=== PATIENT | female | born 1940 | race Caucasian/White ===

== ENCOUNTER 2018-09-08 12:57 | Inpatient (IN) | payer MEDICARE, OTHER ==
[~2018-09-08] VITALS: Ht 157.5 cm; Wt 74.1 kg
[2018-09-08 17:24] VITALS: BP 150/70
[2018-09-08 18:07] VITALS: BP 118/70
--- NOTE | 2018-09-08 19:04 | NUR ---
SENIOR LIVING ADMIT NOTE: Patient arrived to room 133 via wheelchair and accompanied by MICHAELLE Vitale. Patient admitted for PT/OT for generalized strengthening in preparation to going home following surgery for a right hip fracture. Patient oriented to room, bedside commode, call light, unit policies, and TV remote.
--- NOTE | 2018-09-08 19:12 | NUR ---
Swing Bed Nursing Note Patient Handbook for [facility] given to patient. Nursing Problem: PT/OT s/p Rt hip fx with IM Nailing on 09/05 Cognitive/Behavioral: Pt A/O x4, cooperative and pleasant with cares. Pain: Pt has 2 PRN pain medications Q6hr, PT rates pain 8-10/10 with some relief from medications. Pt applies ice when resting. Respiratory Status: CTA on RA. Skin: Incision to the right lateral hip. Dressing to be changed on 09/13. Bowel/Bladder Continence: Continent of bladder, has not had a bowel movement since surgery on 09/05. ADL Functional Status: Pt needs set up help only with dressing and meals, requires one person assist with transfers. Pt propelled self in wheelchair to meals, PT up with walker to bathroom.
[2018-09-08] MEDS ORDERED: OXYC-323 PO (21:37)
[2018-09-08] MEDS ORDERED: HYDR-2815 PO (22:05)
[2018-09-08] MEDS ORDERED: ASPI81TA50 PO (22:06)
[2018-09-08] MEDS: oxyCODONE/APAP 5/325 1 TAB TABLET PO PRN (23:13)
[2018-09-09] MEDS: HYDROcodone/APAP 5/325MG 1 TAB TABLET PO PRN ×3 (03:33→22:37)
[2018-09-09 06:36] VITALS: BP 153/74
[2018-09-09] MEDS: ASPIRIN ENTERIC COATED 81 MG TABLET.DR. PO SCH (07:55)
[2018-09-09] MEDS: oxyCODONE/APAP 5/325 1 TAB TABLET PO PRN ×2 (07:55→13:29)
--- NOTE | 2018-09-09 12:46 | NUR ---
Swing Bed Nursing Note Patient Handbook for [facility] given to patient. Nursing Problem: PT/OT s/p R hip fx with IM Nailing on 09/05 Cognitive/Behavioral: Pt A/Ox4, cooperative and pleasant with cares Pain: Pt has 2 PRN pain medications Q6hr, pt rates pain 8-10 with some relief from medications. Pt applies ice when resting, as well. Respiratory Status: CTA, 98% on room air Skin: Incision to the Right lateral hip, pictures taken and put in chart. To be changed on 09/13 Bowel/Bladder Continence: Continent of bladder, has not had a bowel movement since surgery on 09/05, stool softeners administered. ADL Functional Status: Pt needs set up help only with dressing and meals, requires one person assist with transfers. Pt propelled self in wheelchair to meals, pt up to walk in the walker to bathroom.
[2018-09-09] MEDS ORDERED: ATOR20TA PO (13:16)
[2018-09-09] MEDS ORDERED: FLUO10CA13 PO (13:16)
[2018-09-09] MEDS ORDERED: BISACODYL 10 MG SUPP.RECT PR PRN (14:45)
[2018-09-09] MEDS ORDERED: GLYCERIN ADULT 1 SUPP.RECT. PR PRN ×2 (14:45)
--- NOTE | 2018-09-09 14:55 | PDOC1 ---
History and Physical Date of Admission: Date of Admission: 09/08/2018 Chief Complaint: Chief Complain: PT/OT status post ORIF right hip HPI: HPI: Patient is a 78-year-old female transferred to swing bed status for PT and OT after ORIF right hip. Records indicate that the patient became dizzy while ambulating and fell fracturing her right hip. She underwent surgical repair on 09/05 Dr [facility] orth[facility]ics. Her condition has stabilized such that she is stable for discharge to continue rehabilitation. She is brought to our facility swing bed status. I find the patient lying in bed in no apparent distress. Her biggest complaint is constipation with no bowel movement 4 days. She has some generalized abdominal discomfort no belching nausea or vomiting. She is also having some postoperative pain denies any chest pain or trouble breathing. Medical history significant only for breast cancer which was apparently cured with mastectomy in 2001. Her vital signs have been stable since admission there are no labs available for review. Past Medical History: Heme/Onc: Cancer (breast cancer with mastectomy 2001) Past Surgical History: PSH: Mastectomy, ORIF right hip Family History: Family History: Hypertension Social History: Smoke: No Alcohol: none Drugs: None Allergies: Allergies: Coded Allergies: No Known Drug Allergies (Unverified , 09/08/18) Current Medications: Current Medications: Current Medications Medications (Trade) Dose Ordered Sig/Ele Start Time Stop Time Status Last Admin Dose Admin Acetaminophen/ Hydrocodone Bitart (Lortab 5/325) 1 tab PRN Q4HRS PRN 09/08/18 22:30 09/09/18 10:45 1 TAB Aspirin (Aspirin Enteric Coated) 81 mg DAILYWBKFT 09/09/18 08:00 09/09/18 07:55 81 MG Atorvastatin Calcium (Lipitor) 20 mg QHS 09/09/18 21:00 Non-Formulary Medication (Fluoxetine Hcl (Prozac)) 1 cap DAILYWBKFT 09/10/18 08:00 UNV Oxycodone/ Acetaminophen (Percocet 5/325) 1 tab PRN Q4HRS PRN 09/09/18 00:00 09/09/18 13:29 1 TAB ROS: ROS: Constitutional: No fever or chills Eyes: No eye pain or blurred vision Skin: No rash or itching Cardiovascular: No chest pain, syncope, palpitations, dyspnea on exertion, or edema Respiratory: No cough or difficulty breathing Gastrointestinal: No nausea, vomiting see history of present illness Neurologic: No headaches or focal neurologic deficits Endocrine: No heat or cold intolerance Genitourinary: No incontinence or hematuria Musculoskeletal: See history of present illness Lymphatics: No enlarged lymph nodes Psychiatric: No anxiety or depression PE: PE: Gen.: Alert, pleasant, no apparent distress HEENT: Normocephalic atraumatic, PERRLA EOMI, no scleral icterus, oral mucosa pink and moist Neck: Supple, no lymphadenopathy, nontender Cardiovascular: Normal S1 and S2 no murmurs Pulmonary: Lungs are clear bilaterally with good air movement no respiratory distress Abdomen: Soft nontender non-distended, bowel sounds present no masses Extremities: Sterile dressing covering operative site was some mild tenderness Neuro: Alert and oriented 3, cranial nerves II through XII grossly intact, no lateralizing neuro deficits Skin: Warm, dry Vitals: Vitals: Vital Signs Date Time Temp Pulse Resp B/P (MAP) Pulse Ox O2 Delivery O2 Flow Rate FiO2 09/09/18 14:34 95 Room Air 09/09/18 06:36 97.7 78 18 153/74 (100) VTE Prophylaxis: VTE Prophylaxis Devices: No VTE Pharmacological Prophylaxi: Yes Assessment/Plan: A/P: Closed right intertrochanteric hip fracture Pain control Constipation History of breast cancer Lovenox anticoagulation with decreased mobility and cancer history. Titrate oxycodone to analgesic effect, stool softeners and suppositories to stimulate bowels. Obtain basic labs for baseline, continue PT/OT. CHRISTO AGUILAR DO Sep 09, 2018 14:55
[2018-09-09] MEDS: ENOXAPARIN 40 MG/0.4 ML SYRINGE. SQ SCH (15:46)
[2018-09-09] MEDS: oxyCODONE IR 5 MG TABLET PO PRN ×2 (16:04→18:29)
[2018-09-09 18:18] VITALS: BP 131/57
--- NOTE | 2018-09-09 19:43 | NUR ---
Swing Bed Nursing Note Patient Handbook for [facility] given to patient. Nursing Problem: PT/OT s/p Rt hip fx with IM Nailing on 09/05 Cognitive/Behavioral: Pt A/O x4, cooperative and pleasant with cares Pain: Pt 3 PRN pain medications, pt rates pain 8-10/10 with some relief from medications. Pt applies ice when resting. Respiratory Status: CTA on room air Skin: Incision to the Right lateral hip, pictures in chart; dressing to be changed again on 09/13 Bowel/Bladder Continence: Continent of bladder, has not had a bowel movement since surgery on 09/05, stool softeners administered 09/09 day shift. ADL Functional Status: Pt needs set up help only with dressing and meals, requires one person assist with transfers. Pt propelled self in wheelchair to meals, pt up with walker to bathroom.
[2018-09-09] MEDS: FAMOTIDINE 20 MG TABLET PO SCH (21:38)
[2018-09-09] MEDS: ATORVASTATIN CALCIUM 20 MG TABLET PO SCH (21:39)
[2018-09-10] MEDS: oxyCODONE IR 5 MG TABLET PO PRN (05:09)
[2018-09-10 05:14] VITALS: BP 150/67
[2018-09-10 07:05] LABS: BASO # 0.1 x10^3/uL (0.0-0.2); BASO % 1 % (0-3); EOS # 0.2 x10^3/uL (0.0-0.7); EOS % 3 % (0-3); HEMATOCRIT 26.7 % (36.0-47.0); LYMPH # 1.5 x10^3/uL (1.0-4.8); LYMPH % 19 % (24-48); MEAN CORPUSCULAR HEMOGLOBIN 31 pg (25-35); MEAN CORPUSCULAR HGB CONC 34 g/dL (31-37); MEAN CORPUSCULAR VOLUME 93 fL (79-100); MONO # 0.9 x10^3/uL (0.0-1.1); MONO % 12 % (0-9); NEUT # 5.1 x10^3uL (1.8-7.7); NEUT % 65 % (31-73); PLATELET COUNT 232 x10^3/uL (140-400); RED BLOOD COUNT 2.86 x10^6/uL (3.50-5.40); WHITE BLOOD COUNT 7.8 x10^3/uL (4.0-11.0)
[2018-09-10 07:19] LABS: ALBUMIN 2.5 g/dL (3.4-5.0); ALBUMIN/GLOBULIN RATIO 0.6 (1.0-1.7); CALCIUM 8.7 mg/dL (8.5-10.1); CREATININE 0.8 mg/dL (0.6-1.0); GFR 69.7; TOTAL BILIRUBIN 0.4 mg/dL (0.2-1.0); TOTAL PROTEIN 6.4 g/dL (6.4-8.2)
[2018-09-10] MEDS: FAMOTIDINE 20 MG TABLET PO SCH ×2 (08:29→21:34)
[2018-09-10] MEDS: oxyCODONE/APAP 5/325 1 TAB TABLET PO PRN ×4 (08:29→21:36)
[2018-09-10] MEDS: FLUoxetine HCL 10 MG CAPSULE PO SCH (08:29)
[2018-09-10] MEDS: ASPIRIN ENTERIC COATED 81 MG TABLET.DR. PO SCH (08:29)
[2018-09-10] MEDS: POLYETHYLENE GLYCOL 3350 17 GM PACKET. PO SCH (08:30)
--- NOTE | 2018-09-10 10:01 | NUR ---
Pt sat up to chair for breakfast time, refused tray but is eating a banana and drinking. Pt walked 40 feet using walker and gait belt with 1 assist. Pt tolerated well. Pt back in chair, feels that percocet has helped her pain the most. Pt states she will go to dining room for lunch. Pt cleaned up at bedside, assistance with set up and with back and legs. Will continue to monitor. Addendum: 09/10/18 at 1436 by SHERRY BERNSTEIN RN Correction: Distance was 80 feet.
--- NOTE | 2018-09-10 14:56 | NUR ---
Swing Bed Nursing Note Patient Handbook for [facility] given to patient. Nursing Problem: PT/OT s/p Rt hip fx with IM Nailing on 09/05 Cognitive/Behavioral: Pt A/O x4, cooperative and pleasant with cares Pain: Pt complains of pain, relieved with percocet. Respiratory Status: CTA on room air Skin: Incision to the Right lateral hip, pictures in chart; dressing to be changed again on 09/13. Dressing CDI. Bowel/Bladder Continence: Continent of bowel and bladder, small bowel movement 09/09. Stool softeners and laxatives given. Positive bowel sounds. ADL Functional Status: Pt needs set up help only with dressing and meals, supervision with transfers and mobility. Pt up with walker to bathroom and dining room.
--- NOTE | 2018-09-10 16:03 | NUR ---
Pt walked 90 feet with walker, supervision only.
[2018-09-10] MEDS: ENOXAPARIN 40 MG/0.4 ML SYRINGE. SQ SCH (17:03)
[2018-09-10 18:12] VITALS: BP 149/72
[2018-09-10] MEDS: ATORVASTATIN CALCIUM 20 MG TABLET PO SCH (21:34)
[2018-09-11] MEDS: oxyCODONE/APAP 5/325 1 TAB TABLET PO PRN ×4 (04:13→21:19)
--- NOTE | 2018-09-11 05:13 | NUR ---
Swing Bed Nursing Note Patient Handbook for [facility] given to patient. Nursing Problem: PT/OT s/p Rt hip fx with IM Nailing on 09/05 Cognitive/Behavioral: Pt A/O x4, cooperative and pleasant with cares Pain: Pt complains of pain, relieved with percocet. Respiratory Status: CTA on room air Skin: Incision to the Right lateral hip, pictures in chart; dressing to be changed again on 09/13. Dressing CDI. Bowel/Bladder Continence: Continent of bowel and bladder, small bowel movement 09/09. Stool softeners and laxatives given. Positive bowel sounds. ADL Functional Status: Pt needs set up help only with dressing and meals, supervision with transfers and mobility. Pt up with walker to bathroom and dining room. Circulation: GISELA arias for VTE.
[2018-09-11 06:24] VITALS: BP 112/66
[2018-09-11] MEDS: ASPIRIN ENTERIC COATED 81 MG TABLET.DR. PO SCH (08:09)
[2018-09-11] MEDS: FLUoxetine HCL 10 MG CAPSULE PO SCH (08:09)
[2018-09-11] MEDS: FAMOTIDINE 20 MG TABLET PO SCH ×2 (09:21→21:14)
[2018-09-11] MEDS: POLYETHYLENE GLYCOL 3350 17 GM PACKET. PO SCH (09:22)
[2018-09-11] MEDS: DOCUSATE SODIUM 100 MG CAPSULE PO SCH (10:59)
[2018-09-11] MEDS: ENOXAPARIN 40 MG/0.4 ML SYRINGE. SQ SCH (18:12)
[2018-09-11 18:33] VITALS: BP 113/56
[2018-09-11] MEDS: ATORVASTATIN CALCIUM 20 MG TABLET PO SCH (21:15)
[2018-09-12] MEDS: oxyCODONE/APAP 5/325 1 TAB TABLET PO PRN ×5 (01:30→21:05)
--- NOTE | 2018-09-12 03:53 | NUR ---
Swing Bed Nursing Note Patient Handbook for [facility] given to patient. Nursing Problem: PT/OT s/p Rt hip fx with IM Nailing on 09/05 Cognitive/Behavioral: Pt A/O x4, cooperative and pleasant with cares Pain: Pt complains of pain, relieved with percocet and given every 4 hours. Respiratory Status: CTA on room air Skin: Incision to the Right lateral hip, pictures in chart; dressing to be changed again on 09/13. Dressing CDI. Bowel/Bladder Continence: Continent of bowel and bladder, small bowel movement 09/11. ADL Functional Status: Pt needs set up help only with dressing and meals, supervision with transfers and mobility. Pt up with walker to bathroom and dining room. Circulation: GISELA arias for VTE.
[2018-09-12 06:45] VITALS: BP 139/72
--- NOTE | 2018-09-12 07:51 | NUR ---
Swing Bed Nursing Note Patient Handbook for [facility] given to patient. Nursing Problem: PT/OT s/p Rt hip fx with IM Nailing on 09/05 Cognitive/Behavioral: Pt A/O x4, cooperative and pleasant with care Pain: Pt complains of pain, relieved with percocet and given every 4 hours. Pt educated on opioid induced constipation Respiratory Status: CTA on room air Skin: Incision to the Right lateral hip, pictures in chart; dressing to be changed again on 09/13. Dressing CDI. Bowel/Bladder Continence: Continent of bowel and bladder, small bowel movement 09/11. ADL Functional Status: Pt needs set up help only with dressing and meals, supervision with transfers and mobility. Pt up with walker to bathroom and dining room. Circulation: GISELA arias for VTE. Bibi Alfonso [employer] HEATER HELPER CMSRN OK-
[2018-09-12] MEDS: HYDROcodone/APAP 5/325MG 1 TAB TABLET PO PRN (09:14)
[2018-09-12] MEDS: FAMOTIDINE 20 MG TABLET PO SCH ×2 (09:14→21:05)
[2018-09-12] MEDS: FLUoxetine HCL 10 MG CAPSULE PO SCH (09:15)
[2018-09-12] MEDS: ASPIRIN ENTERIC COATED 81 MG TABLET.DR. PO SCH (09:15)
[2018-09-12] MEDS: DOCUSATE SODIUM 100 MG CAPSULE PO SCH (09:15)
[2018-09-12] MEDS: POLYETHYLENE GLYCOL 3350 17 GM PACKET. PO SCH (09:15)
--- NOTE | 2018-09-12 13:40 | NUR ---
Called [facility] for clarity on when the patient can shower post op. Received instructions from nurse that patient can shower with waterproof covering over the dressing. Patient in her room resting in stable condition. Denies complaints at this time. Will continue to monitor.
[2018-09-12] MEDS: ENOXAPARIN 40 MG/0.4 ML SYRINGE. SQ SCH (17:20)
[2018-09-12 18:32] VITALS: BP_SYST 122; BP_SYST 123; BP_DIAS 59; BP_DIAS 77
[2018-09-12] MEDS: ATORVASTATIN CALCIUM 20 MG TABLET PO SCH (21:05)
[2018-09-13] MEDS: oxyCODONE/APAP 5/325 1 TAB TABLET PO PRN ×5 (03:19→21:41)
[2018-09-13 06:20] VITALS: BP 135/72
[2018-09-13] MEDS: FLUoxetine HCL 10 MG CAPSULE PO SCH (08:42)
[2018-09-13] MEDS: ASPIRIN ENTERIC COATED 81 MG TABLET.DR. PO SCH (08:42)
[2018-09-13] MEDS: FAMOTIDINE 20 MG TABLET PO SCH ×2 (08:42→21:40)
[2018-09-13] MEDS: DOCUSATE SODIUM 100 MG CAPSULE PO SCH (08:42)
[2018-09-13] MEDS: POLYETHYLENE GLYCOL 3350 17 GM PACKET. PO SCH (08:43)
--- NOTE | 2018-09-13 12:07 | NUR ---
Swing Bed Admission Patient Handbook for [facility] given to patient. Nursing Problem: PT/OT s/p Rt hip fx with IM Nailing on 09/05 Cognitive/Behavioral: Pt A/O x4, cooperative and pleasant with care Pain: Pt complains of pain, relieved with percocet and given every 4 hours. Pt educated on opioid induced constipation Respiratory Status: CTA on room air Skin: Incision to the Right lateral hip, pictures in chart; dressing to be changed again on 09/13. Dressing CDI. Bowel/Bladder Continence: Continent of bowel and bladder, small bowel movement 09/11. ADL Functional Status: Pt needs set up help only with dressing and meals, supervision with transfers and mobility. Pt up with walker to bathroom and dining room. Circulation: GISELA arias for VTE. Olena HARRISON .
[2018-09-13] MEDS: ENOXAPARIN 40 MG/0.4 ML SYRINGE. SQ SCH (17:12)
[2018-09-13 18:37] VITALS: BP 125/62
[2018-09-13] MEDS: ATORVASTATIN CALCIUM 20 MG TABLET PO SCH (21:40)
--- NOTE | 2018-09-14 00:37 | NUR ---
Swing Bed Nursing Note Patient Handbook for [facility] Home given to patient. Nursing Problem: PT/OT s/p Rt hip fx with IM Nailing on 09/05 Cognitive/Behavioral: Pt A/O x4, cooperative and pleasant with cares Pain: Pt complains of pain to right hip, relieved with Percocet. Respiratory Status: CTA on room air Skin: Incision to the Right lateral hip. Dressing to stay in place until 09/15. Dressing CDI. Bowel/Bladder Continence: Continent of bowel and bladder, small bowel movement 09/13. ADL Functional Status: Pt needs set up help only with dressing and meals, supervision with transfers and mobility. Pt up with walker to bathroom and dining room. Circulation: GISELA arias for VTE.
[2018-09-14] MEDS: oxyCODONE/APAP 5/325 1 TAB TABLET PO PRN ×2 (02:03→07:52)
[2018-09-14 06:26] VITALS: BP 120/55
[2018-09-14] MEDS ORDERED: SENNOSIDES 8.6 MG TABLET PO PRN (07:15)
[2018-09-14] MEDS: HYDROcodone/APAP 5/325MG 1 TAB TABLET PO PRN ×2 (07:48→16:54)
[2018-09-14] MEDS: POLYETHYLENE GLYCOL 3350 17 GM PACKET. PO SCH (07:48)
[2018-09-14] MEDS: FAMOTIDINE 20 MG TABLET PO SCH ×2 (07:48→20:52)
[2018-09-14] MEDS: ASPIRIN ENTERIC COATED 81 MG TABLET.DR. PO SCH (07:48)
[2018-09-14] MEDS: FLUoxetine HCL 10 MG CAPSULE PO SCH (07:49)
[2018-09-14] MEDS: DOCUSATE SODIUM 100 MG CAPSULE PO SCH (08:55)
--- NOTE | 2018-09-14 11:13 | NUR ---
Swing Bed Nursing Note Patient Handbook for [facility]term given to patient. Nursing Problem: PT/OT s/p Rt hip fx with IM Nailing on 09/05 Cognitive/Behavioral: Pt A/O x4, cooperative and pleasant with cares Pain: Pt complains of pain to right hip, relieved with Percocet. Patient pain not relieved for very long with one tablet. Will try 2 for longer pain relief. Respiratory Status: CTA on room air Skin: Incision to the Right lateral hip. Dressing to stay in place until 09/15. Dressing CDI. Bowel/Bladder Continence: Continent of bowel and bladder, small bowel movement 09/13. ADL Functional Status: Pt needs set up help only with dressing and meals, supervision with transfers and mobility. Pt up with walker to bathroom and dining room. Circulation: GISELA arias for VTE.
[2018-09-14] MEDS ORDERED: oxyCODONE/APAP 7.5/325 1 TAB TABLET PO PRN (11:15)
[2018-09-14] MEDS: oxyCODONE IR 5 MG TABLET PO PRN ×2 (12:00→20:57)
[2018-09-14] MEDS: ENOXAPARIN 40 MG/0.4 ML SYRINGE. SQ SCH (17:10)
[2018-09-14 18:09] VITALS: BP 132/64
[2018-09-14] MEDS: ATORVASTATIN CALCIUM 20 MG TABLET PO SCH (20:52)
[2018-09-14] MEDS: SENNOSIDES 8.6 MG TABLET PO SCH (20:52)
[2018-09-15] MEDS: HYDROcodone/APAP 5/325MG 1 TAB TABLET PO PRN ×3 (02:59→21:12)
[2018-09-15 06:25] VITALS: BP 133/66
[2018-09-15] MEDS: POLYETHYLENE GLYCOL 3350 17 GM PACKET. PO SCH (09:00)
[2018-09-15] MEDS: FAMOTIDINE 20 MG TABLET PO SCH ×2 (09:31→21:12)
[2018-09-15] MEDS: FLUoxetine HCL 10 MG CAPSULE PO SCH (09:32)
[2018-09-15] MEDS: oxyCODONE/APAP 5/325 1 TAB TABLET PO PRN (09:32)
[2018-09-15] MEDS: ASPIRIN ENTERIC COATED 81 MG TABLET.DR. PO SCH (09:32)
[2018-09-15] MEDS: SENNOSIDES 8.6 MG TABLET PO SCH ×2 (09:33→21:12)
--- NOTE | 2018-09-15 10:00 | NUR ---
Swing Bed Nursing Note Patient Handbook for [facility] given to patient. Nursing Problem: Patient admitted to [facility] for PT/OT for generalized strengthening in preparation to returning home following right hip fracture with ORIF. Cognitive/Behavioral:Patient is A/O x 4 and is pleasant and cooperative with all cares. Pain: Patient has c/o hip pain throughout the shift with little relief from pain medications. Respiratory Status: Patient is on room air with no sign of distress. Lungs CTA. Skin: Patient's coccyx is intact. Surgical incision to right hip. Bowel/Bladder Continence:Patient is continent of bowel and bladder. ADL Functional Status: Patient eats, toilets, and moves in bed independently with set up help only. For all other ADLs, patient requires one person assist.
[2018-09-15] MEDS: ENOXAPARIN 40 MG/0.4 ML SYRINGE. SQ SCH (16:55)
[2018-09-15 19:08] VITALS: BP 124/65
[2018-09-15] MEDS: ATORVASTATIN CALCIUM 20 MG TABLET PO SCH (21:12)
--- NOTE | 2018-09-15 23:26 | NUR ---
Swing Bed Nursing Note Patient Handbook for [facility] given to patient. Nursing Problem: Patient admitted to [facility] Services for PT/OT for generalized strengthening in preparation to returning home following right hip fracture with ORIF. Cognitive/Behavioral:Patient is A/O x4. PT is pleasant and cooperative with all cares. Pain: Patient has c/o hip pain with some relief from pain medications. Respiratory Status: Patient is on RA, CTA. Skin: Patient's coccyx is intact. Surgical incision to right hip and thigh. Dressing removed alexandre, 09/15. Incision is clean, dry and intact with edilma in place x2 incisions. Incision left open to air. Bowel/Bladder Continence:Patient is continent of bowel and bladder. ADL Functional Status: Patient eats, toilets and moves in bed independently with setup help only. For all other ADLs, the patient requires one person assist.
[2018-09-16] MEDS: HYDROcodone/APAP 5/325MG 1 TAB TABLET PO PRN ×3 (02:43→14:20)
[2018-09-16 06:08] VITALS: BP 145/64
[2018-09-16] MEDS: FLUoxetine HCL 10 MG CAPSULE PO SCH (07:36)
[2018-09-16] MEDS: SENNOSIDES 8.6 MG TABLET PO SCH ×2 (07:36→20:10)
[2018-09-16] MEDS: ASPIRIN ENTERIC COATED 81 MG TABLET.DR. PO SCH (07:36)
[2018-09-16] MEDS: FAMOTIDINE 20 MG TABLET PO SCH ×2 (07:36→20:10)
[2018-09-16] MEDS: POLYETHYLENE GLYCOL 3350 17 GM PACKET. PO SCH (07:37)
[2018-09-16] MEDS: oxyCODONE IR 5 MG TABLET PO PRN ×2 (12:39→20:11)
--- NOTE | 2018-09-16 12:39 | NUR ---
Swing Bed Nursing Note Patient Handbook for [facility] given to patient. Nursing Problem: Patient admitted to [facility] for PT/OT for generalized strengthening in preparation to returning home following right hip fracture with ORIF. Cognitive/Behavioral:Patient is A/O x4. PT is pleasant and cooperative with all cares. Pain: Patient has c/o hip pain with some relief from pain medications. Respiratory Status: Patient is on RA, CTA. Skin: Patient's coccyx is intact. Surgical incision to right hip and thigh. Incision is clean, dry and intact with edilma in place x2 incisions. Incision left open to air. Bowel/Bladder Continence:Patient is continent of bowel and bladder. ADL Functional Status: Patient eats, toilets and moves in bed independently with setup help only. For all other ADLs, the patient requires one person assist.
[2018-09-16] MEDS: ENOXAPARIN 40 MG/0.4 ML SYRINGE. SQ SCH (16:41)
[2018-09-16 18:33] VITALS: BP 156/63
--- NOTE | 2018-09-16 20:00 | NUR ---
Swing Bed Nursing Note Patient Handbook for [facility] given to patient. Nursing Problem: Patient admitted to [facility] for PT/OT for generalized strengthening in preparation to returning home following right hip fracture with ORIF. Cognitive/Behavioral:Patient is A/O x4. PT is pleasant and cooperative with all cares. Pain: Patient has c/o hip pain with some relief from pain medications. Respiratory Status: Patient is on RA, CTA. Skin: Patient's coccyx is intact. Surgical incision to right hip and thigh. Dressing removed 09/15. Incision is clean, dry and intact with edilma in place x2 incisions. Incision left open to air. Bowel/Bladder Continence:Patient is continent of bowel and bladder. ADL Functional Status: Patient eats, toilets and moves in bed independently with setup help only. For all other ADLs, the patient requires one person assist
[2018-09-16] MEDS: ATORVASTATIN CALCIUM 20 MG TABLET PO SCH (20:10)
[2018-09-17] MEDS: HYDROcodone/APAP 5/325MG 1 TAB TABLET PO PRN ×4 (00:08→23:20)
[2018-09-17 05:25] VITALS: BP 134/56
[2018-09-17] MEDS: FAMOTIDINE 20 MG TABLET PO SCH ×2 (07:58→20:28)
[2018-09-17] MEDS: ASPIRIN ENTERIC COATED 81 MG TABLET.DR. PO SCH (07:59)
[2018-09-17] MEDS: SENNOSIDES 8.6 MG TABLET PO SCH ×2 (07:59→20:28)
[2018-09-17] MEDS: FLUoxetine HCL 10 MG CAPSULE PO SCH (07:59)
[2018-09-17] MEDS: POLYETHYLENE GLYCOL 3350 17 GM PACKET. PO SCH (08:00)
[2018-09-17] MEDS: oxyCODONE IR 5 MG TABLET PO PRN (14:44)
[2018-09-17] MEDS: ENOXAPARIN 40 MG/0.4 ML SYRINGE. SQ SCH (16:35)
[2018-09-17 18:31] VITALS: BP 126/73
[2018-09-17] MEDS: ATORVASTATIN CALCIUM 20 MG TABLET PO SCH (20:28)
[2018-09-18 05:43] VITALS: BP 149/74
[2018-09-18] MEDS: HYDROcodone/APAP 5/325MG 1 TAB TABLET PO PRN ×2 (07:31→17:46)
[2018-09-18] MEDS: POLYETHYLENE GLYCOL 3350 17 GM PACKET. PO SCH (07:31)
[2018-09-18] MEDS: ASPIRIN ENTERIC COATED 81 MG TABLET.DR. PO SCH (07:31)
[2018-09-18] MEDS: FAMOTIDINE 20 MG TABLET PO SCH ×2 (07:32→20:44)
[2018-09-18] MEDS: SENNOSIDES 8.6 MG TABLET PO SCH ×2 (07:32→20:44)
[2018-09-18] MEDS: FLUoxetine HCL 10 MG CAPSULE PO SCH (07:32)
--- NOTE | 2018-09-18 13:24 | NUR ---
Swing Bed Nursing Note Nursing Problem: Patient admitted to [facility] for PT/OT for generalized strengthening in preparation to returning home following right hip fracture with ORIF. Cognitive/Behavioral:Patient is A/O x4. PT is pleasant and cooperative with all cares. Pain: Patient has c/o hip pain with some relief from pain medications. Respiratory Status: Patient is on RA, CTA. Skin: Patient's coccyx is intact. Surgical incision to right hip and thigh. Dressing removed 09/15. Incision is clean, dry and intact with edilma in place x2 incisions. Incision left open to air. Bowel/Bladder Continence:Patient is continent of bowel and bladder. ADL Functional Status: Patient eats, toilets and moves in bed independently with setup help only. For all other ADLs, the patient requires one person assist
[2018-09-18] MEDS: ENOXAPARIN 40 MG/0.4 ML SYRINGE. SQ SCH (16:48)
[2018-09-18 17:51] VITALS: BP 153/76
[2018-09-18] MEDS: ATORVASTATIN CALCIUM 20 MG TABLET PO SCH (20:44)
[2018-09-18] MEDS: oxyCODONE/APAP 5/325 1 TAB TABLET PO PRN (22:14)
[2018-09-19] MEDS: oxyCODONE/APAP 5/325 1 TAB TABLET PO PRN (02:43)
--- NOTE | 2018-09-19 04:51 | NUR ---
Swing Bed Nursing Note Nursing Problem: Patient admitted to [facility] for PT/OT for generalized strengthening in preparation to returning home following right hip fracture with ORIF. Cognitive/Behavioral:Patient is A/O x4. PT is pleasant and cooperative with all cares. Pain: Patient has c/o hip pain with some relief from pain medications. Respiratory Status: Patient is on RA, CTA. Skin: Patient's coccyx is intact. Surgical incision to right hip and thigh. Dressing removed 09/15. Incision is clean, dry and intact with edilma in place x2 incisions. Incision left open to air. Bowel/Bladder Continence:Patient is continent of bowel and bladder. ADL Functional Status: Patient eats, toilets and moves in bed independently with setup help only. For all other ADLs, the patient requires one person assist.
[2018-09-19 05:55] VITALS: BP 122/72
[2018-09-19] MEDS: FLUoxetine HCL 10 MG CAPSULE PO SCH (08:04)
[2018-09-19] MEDS: FAMOTIDINE 20 MG TABLET PO SCH ×2 (08:04→21:21)
[2018-09-19] MEDS: oxyCODONE IR 5 MG TABLET PO PRN ×2 (08:04→17:52)
[2018-09-19] MEDS: ASPIRIN ENTERIC COATED 81 MG TABLET.DR. PO SCH (08:04)
[2018-09-19] MEDS: SENNOSIDES 8.6 MG TABLET PO SCH ×2 (08:04→21:21)
[2018-09-19] MEDS: POLYETHYLENE GLYCOL 3350 17 GM PACKET. PO SCH (08:06)
[2018-09-19] MEDS: HYDROcodone/APAP 5/325MG 1 TAB TABLET PO PRN (12:57)
--- NOTE | 2018-09-19 15:20 | NUR ---
Pt left unit with daughter to attend follow up appointment with primary physician.
--- NOTE | 2018-09-19 15:28 | NUR ---
Swing Bed Nursing Note: Nursing Problem: [facility] for PT/OT for generalized strengthening in preparation to returning home following right hip fracture with ORIF. Cognitive/Behavioral:Patient is A/O x4. PT is pleasant and cooperative with all cares. Pain: Patient has c/o hip pain; PRN Roxicodone and Lortab given. Respiratory Status: Patient is on RA, CTA. Skin: Patient's coccyx is intact. Surgical incision to right hip and thigh. Dressing removed 09/15. Incision is clean, dry and intact with edilma in place x2 incisions. Incision left open to air. Bowel/Bladder Continence:Patient is continent of bowel and bladder. ADL Functional Status: Patient eats, toilets and moves in bed independently with setup help only. For all other ADLs, the patient requires one person assist.
[2018-09-19] MEDS: ENOXAPARIN 40 MG/0.4 ML SYRINGE. SQ SCH (16:26)
[2018-09-19 18:07] VITALS: BP 127/63
[2018-09-19] MEDS: ATORVASTATIN CALCIUM 20 MG TABLET PO SCH (21:21)
[2018-09-19] MEDS: oxyCODONE ER 10 MG TAB.ER.12H PO SCH (21:22)
--- NOTE | 2018-09-20 01:11 | NUR ---
Swing Bed Nursing Note: Nursing Problem: Patient admitted to [facility] for PT/OT for generalized strengthening in preparation to returning home following right hip fracture with ORIF. Cognitive/Behavioral:Patient is A/O x4. PT is pleasant and cooperative with all cares. Pain: Patient has c/o hip pain; scheduled pain medication given at 2100. Respiratory Status: Patient is on RA, CTA. Skin: Patient's coccyx is intact. Surgical incision to right hip and thigh. Dressing removed 09/15. Incision is clean, dry and intact with edilma in place x2 incisions. Incision left open to air. Bowel/Bladder Continence:Patient is continent of bowel and bladder. ADL Functional Status: Patient eats, toilets and moves in bed independently with setup help only. For all other ADLs, the patient requires one person assist.
[2018-09-20] MEDS: oxyCODONE IR 5 MG TABLET PO PRN ×3 (02:27→15:57)
[2018-09-20 05:52] VITALS: BP 138/70
[2018-09-20] MEDS: oxyCODONE ER 10 MG TAB.ER.12H PO SCH (08:28)
[2018-09-20] MEDS: ASPIRIN ENTERIC COATED 81 MG TABLET.DR. PO SCH (08:28)
[2018-09-20] MEDS: FAMOTIDINE 20 MG TABLET PO SCH ×2 (08:29→21:03)
[2018-09-20] MEDS: SENNOSIDES 8.6 MG TABLET PO SCH ×2 (08:29→21:03)
[2018-09-20] MEDS: FLUoxetine HCL 10 MG CAPSULE PO SCH (08:29)
[2018-09-20] MEDS: POLYETHYLENE GLYCOL 3350 17 GM PACKET. PO SCH (08:31)
--- NOTE | 2018-09-20 13:23 | NUR ---
Swing Bed Nursing Note: Nursing Problem: Patient admitted to [facility] for PT/OT for generalized strengthening in preparation to returning home following right hip fracture with ORIF. Cognitive/Behavioral:Patient is A/O x4. PT is pleasant and cooperative with all cares. Pain: Patient has c/o hip pain; taking scheduled and prn pain medication. Respiratory Status: Patient is on RA, CTA. Skin: Patient's coccyx is intact. Surgical incision to right hip and thigh. Dressing removed 09/15. Incision is clean, dry and intact with edilma in place x2 incisions. Incision left open to air. Bowel/Bladder Continence:Patient is continent of bowel and bladder. ADL Functional Status: Patient eats, toilets and moves in bed independently with setup help only. For all other ADLs, the patient requires one person assist.
--- NOTE | 2018-09-20 14:59 | NUR ---
Pt was ambulating with PT and started complaining of increased rt hip pain. Pt sat down in chair and ice applied by PT. Pt very tearful about her increased pain and increased edema to right leg. 2+ pitting edema to top of foot. Spoke with Dr Charlton. New orders noted.
[2018-09-20] MEDS: ENOXAPARIN 40 MG/0.4 ML SYRINGE. SQ SCH (15:41)
--- NOTE | 2018-09-20 16:02 | NUR ---
13 edilma removed from incision to rt hip. No drainage noted. No redness or inflammation. Left LAUREN. Will monitor.
[2018-09-20 18:05] VITALS: BP 115/64
[2018-09-20] MEDS: oxyCODONE ER 20 MG TAB.ER.12H PO SCH (21:03)
[2018-09-20] MEDS: ATORVASTATIN CALCIUM 20 MG TABLET PO SCH (21:03)
--- NOTE | 2018-09-20 22:22 | NUR ---
Swing Bed Nursing Note: Nursing Problem: Patient admitted to [facility] for PT/OT for generalized strengthening in preparation to returning home following right hip fracture with ORIF. Cognitive/Behavioral:Patient is A/O x4. PT is pleasant and cooperative with all cares. Pain: Patient has c/o hip pain although "not as bad as earlier today"; scheduled pain medication increased today. Respiratory Status: Patient is on RA, CTA. Skin: Patient's coccyx is intact. Surgical incision to right hip and thigh. Dressing removed 09/15. Incision is clean, dry and intact with edilma removed this am. Incision left open to air. Bowel/Bladder Continence:Patient is continent of bowel and bladder. ADL Functional Status: Patient eats, toilets and moves in bed independently with setup help only. For all other ADLs, the patient requires one person assist.
[2018-09-21 06:08] VITALS: BP 145/82
[2018-09-21] MEDS: SENNOSIDES 8.6 MG TABLET PO SCH ×2 (08:51→21:56)
[2018-09-21] MEDS: ASPIRIN ENTERIC COATED 81 MG TABLET.DR. PO SCH (08:51)
[2018-09-21] MEDS: oxyCODONE IR 5 MG TABLET PO PRN ×2 (08:52→14:40)
[2018-09-21] MEDS: oxyCODONE ER 20 MG TAB.ER.12H PO SCH ×2 (08:53→21:58)
[2018-09-21] MEDS: FAMOTIDINE 20 MG TABLET PO SCH ×2 (08:54→21:58)
[2018-09-21] MEDS: POLYETHYLENE GLYCOL 3350 17 GM PACKET. PO SCH (08:54)
[2018-09-21] MEDS: FLUoxetine HCL 10 MG CAPSULE PO SCH (08:54)
[2018-09-21] MEDS: ENOXAPARIN 40 MG/0.4 ML SYRINGE. SQ SCH (16:13)
--- NOTE | 2018-09-21 16:40 | NUR ---
Swing Bed Nursing Note: Nursing Problem: Patient admitted to [facility] for PT/OT for generalized strengthening in preparation to returning home following right hip fracture with ORIF. Cognitive/Behavioral:Patient is A/O x4. PT is pleasant and cooperative with all cares. Pt tearful this morning, feeling that she is not healing as quickly as she should, better this afternoon since pain has been better controlled. Pain: Patient has c/o hip pain, new medication regimen "really helping" pain and allowing patient to complete therapy. Respiratory Status: Patient is on RA, CTA. Skin: Patient's coccyx is intact. Surgical incision to right hip and thigh. Dressing removed 09/15. Incision is clean, dry and intact with edilma removed this am. Incision left open to air. Bowel/Bladder Continence:Patient is continent of bowel and bladder. ADL Functional Status: Patient eats, toilets and moves in bed independently with setup help only. For all other ADLs, the patient requires one person assist.
[2018-09-21 18:25] VITALS: BP 111/63
[2018-09-21] MEDS: ATORVASTATIN CALCIUM 20 MG TABLET PO SCH (21:56)
[2018-09-22] MEDS: oxyCODONE IR 5 MG TABLET PO PRN ×2 (04:12→13:55)
[2018-09-22 06:34] VITALS: BP 114/66
--- NOTE | 2018-09-22 06:48 | NUR ---
Swing Bed Nursing Note: Nursing Problem: [facility]/OT for generalized strengthening in preparation to returning home following right hip fracture with ORIF. Cognitive/Behavioral: Patient is A/O x4. PT is pleasant and cooperative with all cares. Pain: Pt stated she was in a lot of pain on 20 SEP 2018 and couldnt finish PT/OT, but with a new pain medication schedule she did much better on 21 SEP 2018. Respiratory Status: Patient is on RA, CTA. Skin: Patient's coccyx is intact. Surgical incision to right hip and thigh is LAUREN, edges approximated, no drainage, erythema, or edema. Dressing removed 09/15. Bowel/Bladder Continence: Patient is continent of bowel and bladder. ADL Functional Status: Patient eats, toilets and moves in bed independently with setup help only. For all other ADLs, the patient requires one person standby or assist. Pt uses walker to ambulate but is steady on her feet whilst using walker.
[2018-09-22] MEDS: POLYETHYLENE GLYCOL 3350 17 GM PACKET. PO SCH (09:00)
[2018-09-22] MEDS: oxyCODONE ER 20 MG TAB.ER.12H PO SCH ×2 (09:35→20:59)
[2018-09-22] MEDS: FAMOTIDINE 20 MG TABLET PO SCH ×2 (09:36→21:00)
[2018-09-22] MEDS: FLUoxetine HCL 10 MG CAPSULE PO SCH (09:36)
[2018-09-22] MEDS: SENNOSIDES 8.6 MG TABLET PO SCH ×2 (09:36→20:59)
[2018-09-22] MEDS: ASPIRIN ENTERIC COATED 81 MG TABLET.DR. PO SCH (09:39)
--- NOTE | 2018-09-22 17:26 | NUR ---
Swing Bed Nursing Note Patient Handbook for [facility] given to patient. Nursing Problem:Patient admitted to [facility] for PT/OT for generalized strengthening in preparation to going home following right hip surgery. Cognitive/Behavioral:Patient is A/O x 4 and is pleasant and cooperative with all cares. Pain:Patient c/o pain this shift. Scheduled and PRN pain medications were administered. Patient reported relief. Respiratory Status:Patient is on room air with no sign of distress. Lungs CTA. Skin:Patient's coccyx is intact. Patient has surgical incision to her lateral right thigh that is LAUREN. Edges are well approximated. Bowel/Bladder Continence:Patient is continent of both bowel and bladder. ADL Functional Status:Patient requires one person assist to shower and dress, but is independent with all other ADLs with set up help only.
[2018-09-22] MEDS: ENOXAPARIN 40 MG/0.4 ML SYRINGE. SQ SCH (18:19)
[2018-09-22 18:48] VITALS: BP 111/60
[2018-09-22] MEDS: ATORVASTATIN CALCIUM 20 MG TABLET PO SCH (21:00)
[2018-09-23 06:29] VITALS: BP 142/74
--- NOTE | 2018-09-23 06:40 | NUR ---
Swing Bed Nursing Note Nursing Problem: [facility] for PT/OT for generalized strengthening in preparation to going home following right hip surgery. Cognitive/Behavioral: Patient is A/O x 4 and is pleasant and cooperative with all cares. Pain: Patient c/o pain this shift to R leg at 2/3. Scheduled oxycontin 20mg given at 2100. Patient fell to sleep shortly thereafter and did not request PRN pain medication overnight. Respiratory Status: Patient is on room air with no sign of distress. Lungs CTA. Skin: Patient's coccyx is intact. Patient has surgical incision to her lateral right thigh that is LAUREN. Edges are well approximated, with no exudate/erythema/edema/ecchymosis to site. Bowel/Bladder Continence: Patient is continent of both bowel and bladder. ADL Functional Status: Patient requires one person assist to shower and dress, but is independent with all other ADLs with set up help only. PT cleared pt for independent ambulation with walker during day shift [id number]. Pt put on bed alarm overnight and asked to call for help during the night.
[2018-09-23] MEDS: FLUoxetine HCL 10 MG CAPSULE PO SCH (08:40)
[2018-09-23] MEDS: FAMOTIDINE 20 MG TABLET PO SCH (08:40)
[2018-09-23] MEDS: oxyCODONE ER 20 MG TAB.ER.12H PO SCH (08:40)
[2018-09-23] MEDS: ASPIRIN ENTERIC COATED 81 MG TABLET.DR. PO SCH (08:40)
[2018-09-23] MEDS: POLYETHYLENE GLYCOL 3350 17 GM PACKET. PO SCH (08:40)
[2018-09-23] MEDS: SENNOSIDES 8.6 MG TABLET PO SCH (08:50)
--- NOTE | 2018-09-23 12:56 | PDOC3 ---
Discharge Summary Visit Information: Problems: (1) Hip fracture, right Qualifiers: Qualified Codes: S72.001A - Fracture of unspecified part of neck of right femur, initial encounter for closed fracture (2) Encounter for physical therapy (3) OT (occupational therapy) encounter (4) HTN (hypertension) Qualifiers: Qualified Codes: I10 - Essential (primary) hypertension (5) Normocytic anemia (6) Moderate protein malnutrition (7) History of breast cancer Brief Hospital Course: Allergies: Allergies Coded Allergies Type Severity Reaction Last Updated Verified No Known Drug Allergies 09/08/18 No Vital Signs: Vital Signs Date Time Temp Pulse Resp B/P (MAP) Pulse Ox O2 Delivery O2 Flow Rate FiO2 09/23/18 12:43 98 Room Air 09/23/18 06:29 97.4 77 18 142/74 (96) PE: Gen.: Alert, pleasant, no apparent distress HEENT: Normocephalic atraumatic, PERRLA EOMI, no scleral icterus, oral mucosa pink and moist Neck: Supple, no lymphadenopathy, nontender Cardiovascular: Normal S1 and S2 no murmurs Pulmonary: Lungs are clear bilaterally with good air movement no respiratory distress Abdomen: Soft nontender non-distended, bowel sounds present no masses Extremities: No clubbing, cyanosis or edema Neuro: Alert and oriented 3, cranial nerves II through XII grossly intact, no lateralizing neuro deficits Skin: Warm, dry Brief Hospital Course: Ms. Coy is a 78 old [sex] who presented with [ ] Discharge Information: Home Meds: Reported Medications Atorvastatin Calcium (LIPITOR) 20 Mg Tablet, 20 MG PO QHS for FOR CHOLESTEROL, # 30 TAB 0 Refills 09/09/18 Fluoxetine Hcl (PROZAC) 10 Mg Capsule, 1 CAP PO DAILYWBKFT, #30 CAP 2 Refills 09/09/18 Aspirin (ASPIR-LOW) 81 Mg Tablet.dr, 1 TAB PO DAILY, #30 TAB 3 Refills 09/08/18 Hydrocodone/Acetaminophen (Lorcet 5-325 mg Tablet) 1 Each Tablet, 1 EACH PO Q4HRS for pain, TAB 09/08/18 Oxycodone Hcl/Acetaminophen (PERCOCET 5-325 MG TABLET) 1 Each Tablet, 1 EACH PO Q4-6HRS for severe pain, TAB 09/08/18 CHRISTO AGUILAR DO Sep 23, 2018 12:56
[2018-09-23] MEDS ORDERED: GLYC1SUP PR (13:00)
[2018-09-23] MEDS ORDERED: POLY17PO5 PO (13:00)
[2018-09-23] MEDS ORDERED: OXYC20TA34 PO (13:00)
[2018-09-23] MEDS ORDERED: FAMO20TA5 PO (13:00)
--- NOTE | 2018-09-23 13:38 | NUR ---
Swing Bed Nursing Note Nursing Problem: Patient [facility] for PT/OT for generalized strengthening in preparation to going home following right hip surgery. Cognitive/Behavioral: Patient is A/O x 4 and is pleasant and cooperative with all cares. Pain: Patient c/o pain this shift to R leg at 2/3. Scheduled oxycontin 20mg given at 0900 with effectiveness. Respiratory Status: Patient is on room air with no sign of distress. Lungs CTA. Skin: Patient's coccyx is intact. Patient has surgical incision to her lateral right thigh that is LAUREN. Edges are well approximated, with no exudate/erythema/edema/ecchymosis to site. Bowel/Bladder Continence: Patient is continent of both bowel and bladder, continues on scheduled miralax and senna. ADL Functional Status: Patient requires one person assist to shower and dress, but is independent with all other ADLs with set up help only. PT cleared pt for independent ambulation with walker during day shift [id number].
--- NOTE | 2018-09-23 13:39 | NUR ---
Dr. Charlton here at this time. Spoke with manager clinical informatics and patient, plan is to discharge home today. States family will be here this afternoon to bead picker. Scripts for OxyContin and Percocet given. Patient resting in recliner at this time, denies complaints. States she is nervous and excited to go home. [facility] ordered for patient and will be starting followup tomorrow.
--- NOTE | 2018-09-23 14:56 | NUR ---
Family here at this time to transport patient back to home. Nurse went over discharge instructions with patient and gave prescriptions to patient at this time. Belongings gathered and discharged home with patient. States she understands discharge instructions and followup care.
== END 2018-09-23 15:00 | disposition home health service (06) | DRG 536 ==
LOC: LND 16:25
PROVIDERS: ADMIT Neuromusculoskeletal Medicine & OMM; ATTEND Neuromusculoskeletal Medicine & OMM
DX: S72.141A Displaced intertrochanteric fracture of right femur, initial encounter for closed fracture (principal); E44.0 Moderate protein-calorie malnutrition; I10 Essential (primary) hypertension; K59.00 Constipation, unspecified; D64.9 Anemia, unspecified; Z79.82 Long term (current) use of aspirin; Z82.49 Family history of ischemic heart disease and other diseases of the circulatory system; Z79.899 Other long term (current) drug therapy; Z85.3 Personal history of malignant neoplasm of breast; Z90.10 Acquired absence of unspecified breast and nipple; Z68.29 Body mass index [BMI] 29.0-29.9, adult
CPT/HCPCS: 36415; 80053; 85025; J1650; 97110; 97116; 97530; 97535

== ENCOUNTER → 2018-10-17 | Outpatient (CLI) | payer MEDICARE, OTHER ==
[2018-09-23 06:29] VITALS: BP 142/74
[~2018-10-17] MED LIST: ASPI81TA50 PO; ATOR20TA PO; FAMO20TA5 PO; FLUO10CA13 PO; GLYC1SUP PR; HYDR-2815 PO; OXYC-323 PO; OXYC20TA34 PO; POLY17PO5 PO
--- NOTE | 2018-10-17 15:49 | RAD ---
AP view the pelvis and two-view study of the right hip Clinical indications: Right hip pain. Status post hip surgery on September 15, 2018. COMPARISON: September 04, 2018. FINDINGS: Since the previous study, the patient has had placement of an intramedullary devon within the proximal right femur with an interlocking compression screw thereby reducing and fixating the intertrochanteric fracture of the proximal right femur. The fracture is not healed and there is no significant healing callus formation around the fracture at this point in time. 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 No acute fracture or diastases or osteolytic process of the pelvic bones is seen. IMPRESSION: ORIF of intertrochanteric fracture of the proximal right femur. Fracture is not healed.. Electronically signed by: Simone Kyle MD (10/17/2018 3:46 PM) [id number]
== END | disposition home or self-care (01) ==
LOC: RAD 12:58
PROVIDERS: ATTEND Orthopaedic Surgery Sports Medicine
DX: S72.141G Displaced intertrochanteric fracture of right femur, subsequent encounter for closed fracture with delayed healing (principal); M16.12 Unilateral primary osteoarthritis, left hip; X58.XXXD Exposure to other specified factors, subsequent encounter
CPT/HCPCS: 73502

== ENCOUNTER → 2019-03-07 | Outpatient (CLI) | payer MEDICARE, OTHER ==
[~2019-03-07] MED LIST changes: -OXYC-323 PO; +OXYC1TAB15 PO; -OXYC20TA34 PO; +OXYC20TA35 PO
--- NOTE | 2019-03-07 11:27 | RAD ---
EXAM: Pelvis and left hip, 3 views. HISTORY: Pain. COMPARISON: None. FINDINGS: A frontal view the pelvis and frontal and frog-leg views the left hip are obtained. There is internal fixation of a proximal right femoral fracture. There is minimal bilateral femoral head marginal spurring. There is degenerative facet arthropathy at the lumbosacral junction. There is a stable small sclerotic lesion within the proximal left femoral metaphysis, allowing for differences in image projection. IMPRESSION: 1. Internal fixation of a proximal right femoral fracture. 2. Minimal bilateral hip osteoarthritis. 3. Stable small sclerotic lesion within the proximal left femoral metaphysis. Electronically signed by: Andreea Gonzalez MD (03/07/2019 11:24 AM) [id number]
== END | disposition home or self-care (01) ==
LOC: RAD 10:28
PROVIDERS: ATTEND Orthopaedic Surgery Sports Medicine
DX: S72.141D Displaced intertrochanteric fracture of right femur, subsequent encounter for closed fracture with routine healing (principal); M16.0 Bilateral primary osteoarthritis of hip; M25.851 Other specified joint disorders, right hip; X58.XXXD Exposure to other specified factors, subsequent encounter
CPT/HCPCS: 73502